=== PATIENT | male | born 1955 | race Caucasian/White ===

== ENCOUNTER → 2016-06-20 | Outpatient (CLI) | payer OTHER ==
[~2016-06-20] MED LIST: ACHYD1T PO; CLPD75T PO; FLUT16SP NS; FURO-124 PO; GBPN400C PO; METO25TA60 PO; SPRN25T PO; TRM50T PO; [UNRECOGNIZED DRUG - CODE] PO
--- NOTE | 2016-06-20 14:17 | Diagnostic Imaging Report ---
CLINICAL INDICATION: Patient with chronic low back pain, especially shooting, burning pain in left hip. EXAM: Axial CT scan of the brain performed without IV contrast. Sagittal and coronal reformatted images are created. COMPARISON: MRI of the lumbar spine performed without and with IV contrast dated 08/14/2014. MRI of the abdomen dated 09/01/2015. FINDINGS: There is no evidence of acute lumbar spine fracture. Stable postop changes to the lower lumbar spine with L4 and L5 laminectomies. There is no significant paraspinal soft tissue abnormality. There is nonobstructive left nephrolithiasis with a roughly 3 mm stone in the midportion of left kidney seen. There are multiple low-density lesions seen throughout the liver which is better seen on the comparison MRI. 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 L1-L2 and L2-L3: Unremarkable. L3-L4: Stable mild facet arthropathy. L4-L5: There is no significant change to the minimal grade 1 retrolisthesis of L4 on L5 with associated diffuse disc bulge, moderate to severe loss of intervertebral disc height, endplate irregularity, and sclerosis. There is decompression of the thecal sac at the L4-L5 level with no significant central spinal canal narrowing. There is mild bilateral L4-L5 facet arthropathy and moderate to severe L4-L5 bilateral neuroforaminal narrowing which is not significant change. L5-S1: There is no significant change to the L5-S1 diffuse disc bulge. There is no significant central spinal canal narrowing due to decompression of the thecal sac posteriorly. There is stable moderate to severe bilateral neuroforaminal narrowing. IMPRESSION: 1: Stable multilevel lumbar spine degenerative disease which is worse at the L4-L5 and L5-S1 levels. 2: Stable lower lumbar spine L4 and L5 laminectomies. 3: Stable moderate to severe bilateral neuroforaminal narrowing at the L4-L5 and L5-S1 levels. Dictated by: Dictated on workstation # [id number]
== END ==
LOC: RAD 10:50
DX: M54.5 Low back pain (principal); M51.37 Other intervertebral disc degeneration, lumbosacral region
CPT/HCPCS: 72131

== ENCOUNTER 2016-06-25 15:30 | Outpatient (RCR) | payer OTHER | END 2016-06-30 | disposition home or self-care (01) | LOC: PT 15:30 | PROVIDERS: ATTEND Family Medicine | DX: M54.5 Low back pain (principal) | CPT/HCPCS: 97001; 97110; 97140; G8978; G8979 ==

== ENCOUNTER 2016-07-01 09:30 | Outpatient (RCR) | payer OTHER | END 2016-07-11 | disposition home or self-care (01) | LOC: CR 09:30 | PROVIDERS: ATTEND Family Medicine | DX: I42.8 Other cardiomyopathies (principal); I50.9 Heart failure, unspecified | CPT/HCPCS: 93798 ==

== ENCOUNTER 2016-09-30 10:30 | Outpatient (RCR) | payer OTHER | END 2016-09-30 12:00 | disposition home or self-care (01) | LOC: CR 10:30 | PROVIDERS: ATTEND Family Medicine | DX: I42.8 Other cardiomyopathies (principal); I50.9 Heart failure, unspecified | CPT/HCPCS: 93798 ==

== ENCOUNTER 2016-10-23 14:30 | Outpatient (RCR) | payer OTHER ==
--- NOTE | 2016-09-04 13:53 | PT/OT/ST INITIAL EVALUATION ---
Department of Health and Human Services Form Approved Health Care Financing Administration OMB No. [id number] PLAN OF CARE/ASSESSMENT FOR OUTPATIENT REHABILITATION (Complete for Initial Claims Only) 1. PATIENT'S NAME Agustin El 2. ACC # [id number] 3. HICN NA 4. PROVIDER NO. NA 5. TYPE: PT 6. PRIOR HOSPITALIZATION NA 7. PRIMARY DX Low back pain 8. SECONDARY DX Core weakness 9. ONSET DATE Worsening in the last 2 months 10. REFERRAL DATE NA 11. SOC. DATE 08/26/2016 12. TIME OF EVAL 1:51 p.m. [address]YSICIAN Dr. Dominic Vasques 13. CHARGES/UNITS NA 14. G CODES [id number] and [id number] 15. PRIOR LEVEL OF FUNCTION; PERTINENT HISTORY (Prior therapy results, reason for referral.) S: Prior to today's evaluation, the patient did consent to today's evaluation and treatment. The patient is a 60-year-old male referred to therapy by Dr. Dominic Vasques to address low back pain. Personal health rating: The patient does rate his overall and general health as poor. Primary Complaint: The patient states he has had ongoing back pain for over 20 years. This has been gradually worsening over time. The patient significantly worsened 2 to 3 months ago until he underwent an epidural a few weeks ago. This significantly decreased his pain; however, the patient continues to have chronic pain in his low back. Pain has lessened since the epidural. The patient does state to manage the pain he does take many pain medications including gabapentin, which he takes consistently. He is on Lortab, taking 2-1/2 to 3 Lortab per day along with the gabapentin. The patient is using a Lidocaine patch to manage his symptoms in his low back as well, which does decreased his pain. The patient is currently undergoing cardiac rehab due to an ejection fraction of 15% in the patient with a possibility of undergoing a heart transplant in the future. The patient states he does perform stretches at cardiac rehab and is up to 36 minutes of walking on the treadmill. Prior level of function: Prior function includes the patient being unlimited in all activity with pain. Current level of function: Currently the patient is unable to do any lifting. He states that his right hip and low back feels significantly tight. The patient is on a 25 pound lifting restriction and does state, especially with walking at cardiac rehab, he does get tingling into his hands and feet. He is limited in the amount of time he can spend at work. Therapy History: Includes PT in the past with good results to decrease pain. Obstacles to delivery of care: Includes significant cardiac issues and decreased activity tolerance. Pain Level: Maximal pain level is 3 to 6/10. The patient describes the pain as a deep burning sensation at the center of his back and tightness in his back and right hip. Aggravating factors: Include increased activities. Relieving factors: Include medications. Diagnostic testing: Include previous MRIs and x-rays, which do show significant degeneration in his spine. Past medical history: Includes a laminectomy at L4 and 5, defibrillator, osteoarthritis and possibility of needing a heart transplant. Current medications: Include digoxin, Metoprolol, gabapentin and Barker. Patient's Goal: The patient's goal for physical therapy is to have decreased pain in his back and have increased range of motion as well as less dependence on medication. 16. INITIAL ASSESSMENT/SAFETY PRECAUTIONS/MEDICAL COMPLICATIONS (Level of function at start of care. Be specific, use objective measures, list problems.) O: APPEARANCE AND OBSERVATION: The patient presents as a middle aged male who ambulates with an antalgic gait pattern due to decreased pelvic rotation with gait. The patient is slightly forward flexed as well. PALPATION: With palpation the patient does have significant increased tone and tightness throughout lumbar spine paraspinals, as well as the thoracic spine paraspinals. SPECIAL TESTS: Include a positive Trendelenburg test bilaterally with the right stance having a right lateral lean and left stance having right hip drop. The patient additionally has decreased excursion of the left PSIS with a stork test. 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 He additionally had approximately 75% limitation in the posterior and lateral hip capsule mobility. Deep tendon reflexes were within functional limits for patellar and Achilles or 2+/4. RANGE OF MOTION/FLEXIBILITY: Throughout the lumbar spine is within functional limits with left side bending approximately 20% limited as compared to the right side. Hamstring flexibility on the right is measured at the popliteal angle is 153 degrees; on the left is 159 degrees. Piriformis flexibility is approximately 50% limited on the right and within normal limits on the left. Internal and external rotation on the right is 32 degrees. On the left internal rotation is 20 degrees, external rotation is 65 degrees. Hip extension is 11 degrees on the right and 15 degrees on the left. STRENGTH: Throughout, bilateral lower extremities are grossly 4+/5 throughout with the exception of hip abduction which tests grossly 3/5 bilaterally. TODAY'S TREATMENT: After evaluation, therapeutic exercise was performed and issued as a home exercise program to disassociate anterior and posterior pelvic tilt. Manual therapy techniques were then performed throughout the lumbar spine. 17. INITIAL POC: (Specify procedures, modalities, short and extermination supervisor goals) A: The patient presents to physical therapy with diagnosis of back pain with resultant decreased flexibility, decreased pelvic mobility, increased pain, decreased ambulation, decreased sleeping ability, and decreased activity tolerance. T PROGNOSIS: This patient does have a good prognosis with regular therapy attendance and compliance with home exercise program. This patient is expected to benefit from physical therapy services in order to have decreased pain, increased active range of motion, to return to prior activities. OUTCOME ASSESSMENT: The Modified Oswestry low back pain disability questionnaire which scored 60% disability. INFORMED CONSENT: The diagnosis, prognosis, treatment plan, risks and expected outcomes were discussed with the patient and the patient did agree to today's established plan of care. SHORT TERM GOALS: 1. The patient to be independent and compliant with home exercise program in 1 week. 2. The patient with a right hip external rotation at least 50 degrees in 3 weeks to allow standing at least 30 minutes at work. 3. The patient with a Modified Oswestry low back pain disability questionnaire no more than 35% disability in 6 weeks to allow sleeping at night. P: Plan to treat the patient 2 times per week for 6 weeks in order to address low back pain. Therapeutic treatments to include modalities to decrease pain, inflammation and spasming. Manual therapy techniques including ASTYM, joint mobilization, and others as indicated. Therapeutic exercise targeting active range of motion, strengthening and flexibility, balance and proprioceptive training and patient education in home exercise program to be advanced as warranted. 18. FREQUENCY 2 times per week 19. DURATION 6 weeks 20. FUNCTIONAL LEVEL (End of claim period) 21. PHYSICIAN SIGNATURE ? ON FILE OR ENTER HERE: 22. DATE: I certify the need for these services furnished under this plan of care and if for partial hospitalization. 23. CERTIFICATION FROM THROUGH FORM [id number]
== END 2016-10-28 10:47 | disposition home or self-care (01) ==
LOC: PT 14:30
PROVIDERS: ATTEND Family Medicine
DX: M54.5 Low back pain (principal)
CPT/HCPCS: 97110; 97140; 97162; G8981; G8982